=== PATIENT | male | born 1985 | race Caucasian/White ===

== ENCOUNTER 2021-12-10 13:41 | Emergency (ER) | payer OTHER ==
--- NOTE | 2021-12-10 14:53 | RAD ---
EXAMINATION: Left ribs radiograph. VIEWS: 3 COMPARISON: None INDICATION:36 years, Male, fall, left anterior rib pain. FINDINGS/ IMPRESSION: No acute displaced left rib fracture. Visualized lungs and mediastinum are unremarkable. No soft tiss ue swelling. Electronically signed by: Dwain Hsieh MD (12/10/2021 2:51 PM) [facility]
--- NOTE | 2021-12-10 16:28 | PHYS DOC ---
General Adult EDM: Chief Complaint: RIB PAIN HPI: HPI: Patient is a [age] year old [sex] who presents with [] Review of Systems: Review of Systems: Constitutional: Denies fever or chills Eyes: Denies change in visual acuity HENT: Denies nasal congestion or sore throat Respiratory: Denies cough or shortness of breath Cardiovascular: Denies chest pain or edema GI: Denies abdominal pain, nausea, vomiting, bloody stools or diarrhea : Denies dysuria Musculoskeletal: Denies back pain or joint pain Integument: Denies rash Neurologic: Denies headache, focal weakness or sensory changes Endocrine: Denies polyuria or polydipsia Lymphatic: Denies swollen glands Psychiatric: Denies depression or anxiety Physical Exam: PE: Constitutional: Well developed, well nourished, no acute distress, non-toxic ap pearance. [] HENT: Normocephalic, atraumatic, bilateral external ears normal, oropharynx moist, no oral exudates, nose normal. [] Eyes: PERRLA, EOMI, conjunctiva normal, no discharge. [] Neck: Normal range of motion, no tenderness, supple, no stridor. [] Cardiovascular:Heart rate regular rhythm, no murmur [] Lungs & Thorax: Bilateral breath sounds clear to auscultation [] Abdomen: Bowel sounds normal, soft, no tenderness, no masses, no pulsatile masses. [] Skin: Warm, dry, no erythema, no rash. [] Back: No tenderness, no CVA tenderness. [] Extremities: No tenderness, no cyanosis, no clubbing, ROM intact, no edema. [] Neurologic: Alert and oriented X 3, normal motor function, normal sensory function, no focal deficits noted. [] Psychologic: Affect normal, judgement normal, mood normal. [] EKG: EKG: [] Radiology/Procedures: Radiology/Procedures: [] Heart Score: Risk Factors: Risk Factors: DM, Current or recent (<one month) smoker, HTN, HLP, family history of CAD, obesity. Risk Scores: Score 0 - 3: 2.5% MACE over next 6 weeks - Discharge Home Score 4 - 6: 20.3% MACE over next 6 weeks - Admit for Clinical Observation Score 7 - 10: 72.7% MACE over next 6 weeks - Early Invasive Strategies Course & Med Decision Making: Course & Med Decision Making Pertinent Labs and Imaging studies reviewed. (See chart for details) [] Dragon Disclaimer: Dragon Disclaimer: This electronic medical record was generated, in whole or in part, using a voice recognition dictation system. Departure Departure: Impression: Primary Impression: Contusion of rib on left side Qualified Codes: S20.212A - Contusion of left front wall of thorax, initial encounter Disposition: HOME / SELF CARE / HOMELESS Condition: STABLE Referrals: JOHN XIE MD (PCP) Patient Instructions: Incentive Spirometer, Rib Contusion Additional Instructions: Ice area of discomfort 20 minutes on and leave off for next 20 minutes. Repeat several times daily for the next few days. After 72 hours may introduce heat. Use [id number] ibuprofen and or Tylenol for pain discomfort. Please utilize incentive spirometer 10 times in a row at least 5 times daily for the next week. IVIS SHELTON DO Dec 10, 2021 16:28
== END 2021-12-10 17:20 | disposition home or self-care (01) ==
LOC: ER 13:41
DX: S20.212A Contusion of left front wall of thorax, initial encounter (principal); X58.XXXA Exposure to other specified factors, initial encounter; Y93.89 Activity, other specified; Y92.89 Other specified places as the place of occurrence of the external cause; Y99.8 Other external cause status
CPT/HCPCS: 71100; 99283